=== PATIENT | female | born 1960 | race Caucasian/White ===

== ENCOUNTER 2016-08-13 15:58 | Emergency (ER) | payer OTHER ==
[2016-08-13 16:15] VITALS: BP 147/82; BMI 32.1
--- NOTE | 2016-08-13 16:58 | DR.EXTPAIN ---
HPI - Time seen Time seen: 16:53 - PCP Primary Care Physician: MARNIE MENENDEZ - Complaint/Symptoms Chief Complaint:: PT C/O FALLING OUT OF A PORCH SWING AND FELL FACE FIRST LAST TUESDAY. PTS COLLAR BONE WAS XRAYED AND IT WAS NEG.. PT C/O INCREASE PAIN TO HER RIGHT SHOULDER AND BACK, AND NUMBNESS. Self Treatment fo Chief Complaint: ICE, LIDOCAINE PATCH, NORCO 7.5 . - Source History Provided: Patient - Mode of arrival Mode of Arrival: Ambulatory - Timing Onset of Chief Complaint: 08/04/16 PMH - PMH Past Medical History: Yes Past Medical History Comment: BREAST CA. Past Surgical History: Yes Surgical History: Hysterectomy, Ortho Surgery Past Surgical History Comment: LUMPECTOMY. CHEMO , RADIATION. RECONSTRUCTIVE BREAST SURGERY. 2011 , KIDNEYS , BACK - Family History History of Family Medical Conditions: Yes Family Medical History: Diabetes Mellitus, Cancer, Hypertension - Social History Does patient currently use any type of tobacco product: No Have you used tobacco products in the last 12 months: No Type of Tobacco Use: None Does any household member use tobacco: No Alcohol Use: None Do you use any recreational Drugs:: No Lives With: Family Lives Where: Home - infectious screening In the last 2 months have you had wt loss of >10#?: NO Have you had fever, night sweats or hemotysis?: No Have you traveled outside the country in the last 6 months?: No Isolation: Standard ROS - Review of Systems Constitutional: No Symptoms Reported Eyes: No Symptoms Reported ENTM: No Symptoms Reported Respiratoy: No Symptoms Reported Cardiovascular: No Symptoms Reported Gastrointestinal/Abdominal: No Symptoms Reported Genitourinary: No Symptoms Reported Neurological: No Symptoms Reported Musculoskeletal: Shoulder (pain right) Integumentary: No Symptoms Reported Hematologic/Lymphatic: No Symptoms Reported Endocrine: No Symptoms Reported Psychiatric: No Symptoms Reported All Other Systems: Reviewed and Negative PE - Vital Signs Vitals: Pulse Rate 86 Respiratory Rate 22 Blood Pressure 147/82 O2 Sat by Pulse Oximetry 96 - General Limitations: No Limitations General Appearance: Alert, In No Apparent Distress - Head Head Exam: Normal Inspection, Atraumatic - Eyes Eye exam: Normal Appearance, PERRL, EOMI - ENT ENT Exam: Normal Exam - Neck Neck Exam: Normal Inspection, Full ROM - Chest Chest Inspection: Normal Inspection - Respiratory Respiratory Exam: Normal Lung Sounds Bilat Respiratory Exam: Bilateral Clear to Auscultation - Cardiovascular Cardiovascular Exam: Regular Rate, Normal Rhythm - Abdominal Exam Abdominal Exam: Normal Inspection Abdominal Tenderness: negative: RUQ, RLQ, LUQ, LLQ, Epigastrium, Suprapubic, Diffuse, Mild, Moderate, Severe, Other - Extremities Extremities Exam: Tenderness (right shoulder). negative: Full ROM (decreased ROM shoulder) - Upper Extremities Shoulder Exam: Tenderness, Tenderness over AC Joint. negative: Full ROM Arm Exam: Normal Inspection Elbow Exam: Normal Inspection Forearm Exam: Normal Inspection Hand Exam: Normal Inspection Neuromotor Exam: Normal Exam Neurosensory Exam: Normal Exam Hand Tendon Exam: Flexor Digitorium Profundus (Location) Upper Ext. Vascular Exam: Capillary Refill - Lower Extremities Hip/Pelvis Exam: Normal Inspection Upper Leg Exam: Normal Inspection Knee Exam: Normal Inspection Lower Leg Exam: Normal Inspection Ankle Exam: Normal Inspection Foot/Toe Exam: Normal Inspection Neurovascular/Tendon Exam: Normal Capillary Refill Gait Exam: Observed and Normal - Back Back Exam: Normal Inspection - Neurological Neurological Exam: Alert, Oriented X3, CN II-XII Intact ROR - XRAY XRAY Interpreted by: Radiologist (Minimal cortical fractures of the medial humeral head and neck of the humerus with a moderately large joint effusion, mild osteoarthritis) - Diagnosis Discharge Problem: Fx of med humeral head and neck of humer, Moderate large joint effusion Osteoarthritis Qualifiers: Osteoarthritis location: shoulder Osteoarthritis type: unspecified Laterality: right Qualified Code(s): M19.011 - Primary osteoarthritis, right shoulder - Discharge Plan Condition: Stable - Follow ups/Referrals Follow ups/Referrals: PENELOPE DYE [Primary Care Provider] - 3 days - Instructions
--- NOTE | 2016-08-13 18:08 | RAD ---
History: Status post fall with right arm pain Technique: AP and lateral views of the right humerus Comparison:NONE Findings: The soft tissues are grossly unremarkable. There is no acute fracture or dislocation. Joint spac es are grossly preserved. Impression: 1. No acute osseous abnormalities identified. Reported By:
--- NOTE | 2016-08-13 18:58 | CT ---
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 There are minimal osteophytes about the AC joint. The visualized r ibs are unremarkable. There are mild osteophytes about the glenohumeral joint. There is a break in t he cortex of the humeral head medially in the medial cortex of the neck of the right humerus. There is a joint effusion. Impression: 1. Minimal cortical fractures of the medial humeral head and neck of the humerus with a E moderately large joint effusion 2. Mild osteoarthritis Reported By:
[2016-08-13] MEDS ORDERED: NORCO 7.5/325 MG TAB PO ONE (20:10)
[2016-08-13] MEDS ORDERED: NORCO 7.5/325 MG TAB ONE (20:10)
== END 2016-08-13 20:20 | disposition home or self-care (01) ==
LOC: ER 16:20
DX: S42.209A Unspecified fracture of upper end of unspecified humerus, initial encounter for closed fracture (principal); M25.469 Effusion, unspecified knee; M19.011 Primary osteoarthritis, right shoulder; W19.XXXA Unspecified fall, initial encounter; Y92.9 Unspecified place or not applicable
CPT/HCPCS: 73060; 73200; 99282; 99283

== ENCOUNTER → 2017-07-14 | Outpatient (CLI) | payer OTHER ==
--- NOTE | 2017-07-18 09:40 | MRI ---
MRI left foot without contrast Indication: Left ankle pain with popping sound heard 2 months prior Technique: Multiplanar, multi sequence imaging of the left foot without IV contrast administration. Findings: Bone marrow signal is preserved within the calcaneus, talus, navicular and cuneiforms. Ther e is mild bone marrow edema within the lateral aspect of the cuboid. Lisfranc ligament and joint are maintained. There is no mass or mass effect identified within the sin us tarsi. The interosseous and cervical ligaments of the sinus tarsi are intact. Small amount of flui d is noted within the posterior subtalar joint with subchondral sclerosis consistent with very mild o steoarthrosis. Additionally there is mild hypertrophic bone formation within the dorsal aspect of the talonavicular joint also consistent with osteoarthrosis. Split thickness tear of the peroneus brevis tendon with likely tendinopathy and/or partial thickness tearing of the peroneus brevis tendon with moderate tenosynovitis. The visualized medial and anterior ankle tendons are intact. The Achilles ten don insertion is normal. The plantar fascia demonstrates diffuse thickening of the medial lateral bands without increased STIR signal and mild edema within the adjacent fat pad consistent with subacute fasciitis. No high-grade plantar fascia tear. The intrinsic flexor muscles of the feet demonstrate normal signal. There is no localizing fluid collection within the foot. Impression: 1. Mild osteoarthrosis of the posterior subtalar joint, talonavicular joint and calcaneocuboid joints . 2. Subacute fasciitis of the medial and lateral bands of the plantar fascia without high-grade or ful l-thickness plantar fascia tear. 3. Split thickness tear of the peroneus brevis tendon along with either tendinopathy or partial thick ness tear of the peroneus longus tendon. Tenosynovitis of the peroneus tendon sheath is also noted. Reported By:
--- NOTE | 2017-07-18 10:42 | MRI ---
MRI left ankle without contrast Indication: Ankle pain with popping sound approximate 2 months prior Technique: Multiplanar, multi sequence imaging of the left ankle without IV contrast administration. Findings: The anterior and posterior inferior tibiofibular and talofibular ligaments are intact. Calc aneofibular ligament is normal. There is no abnormal signal or evidence of tear within the deep or harrison perficial fibers of the deltoid ligamentous complex. The spring ligament is intact. There is a split thickness tear of the peroneus brevis tendon along with increased signal within the peroneus longus t endon representing either tendinosis or partial-thickness tear. Moderate peroneal tenosynovitis. There is small amount of fluid surrounding the posterior tibialis and flexor digitorum longus tendons posterior to the medial malleolus with small amount of synovitis within the flexor digitorum tendon sheath. Flexor hallucis longus tendon is intact. Anterior ankle tendons are normal. The Achilles tend on demonstrates no evidence of tear. The tibiotalar articulation demonstrates no high-grade or full-t hickness cartilage loss or subchondral bone marrow signal abnormality. There is no localizing soft ti ssue swelling within the ankle. The syndesmosis demonstrates no fluid tracking of the interosseous me mbrane. Impression: 1. Chronic split thickness tear of the peroneus brevis tendon with either tendinosis or partial-thick ness tear of the peroneal longus tendon in association with moderate peroneal tenosynovitis. No full- thickness tear or retraction of the peroneal tendons. 2. Mild tenosynovitis of the posterior tibialis and flexor digitorum longus tendons. 3. No significant degenerative change within tibiotalar articulation or evidence of acute or subacute tears of the talofibular, tibiofibular, calcaneofibular and deltoid ligamentous complexes. Reported By:
== END | disposition home or self-care (01) | DRG 556 ==
LOC: RAD 14:01
PROVIDERS: ATTEND Internal Medicine
DX: M25.572 Pain in left ankle and joints of left foot (principal); S96.812A Strain of other specified muscles and tendons at ankle and foot level, left foot, initial encounter; X58.XXXA Exposure to other specified factors, initial encounter; M72.2 Plantar fascial fibromatosis
CPT/HCPCS: 73718; 73721